=== PATIENT | female | born 1940 ===

== ENCOUNTER 2018-05-12 15:42 | Emergency (ER) | payer OTHER ==
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
[2018-05-12 16:26] VITALS: BP 183/103; PULSE 77; RESP 18; TEMP 98.4; O2SAT 98
== END 2018-05-12 16:40 | disposition home or self-care (01) ==
LOC: C.ER 15:42
DX: S13.4XXA Sprain of ligaments of cervical spine, initial encounter (principal); V49.9XXA Car occupant (driver) (passenger) injured in unspecified traffic accident, initial encounter